=== PATIENT | female | born 1975 | race Caucasian/White ===

== ENCOUNTER 2017-03-27 16:52 | Emergency (ER) | payer OTHER ==
[~2017-03-27] VITALS: Ht 162.6 cm; Wt 73.6 kg
[2017-03-27 16:52] VITALS: BP 120/78; PULSE 81; RESP 18; O2SAT 98
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
[2017-03-27] MEDS ORDERED: HYDROcodone-APAP 5-325 mg Tablet PO ONE (17:05)
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
[2017-03-27] MEDS ORDERED: IBUP800T28 PO (18:01)
[2017-03-27] MEDS ORDERED: CYCL10TA9 PO (18:01)
[2017-03-27 18:13] VITALS: BP 120/78; PULSE 81; RESP 18; O2SAT 98
== END 2017-03-27 18:14 | disposition home or self-care (01) ==
LOC: SED 16:52
DX: S39.012A Strain of muscle, fascia and tendon of lower back, initial encounter (principal); M54.2 Cervicalgia; R07.1 Chest pain on breathing; V43.62XA Car passenger injured in collision with other type car in traffic accident, initial encounter; Y93.89 Activity, other specified; Y99.8 Other external cause status; Y92.410 Unspecified street and highway as the place of occurrence of the external cause; F17.200 Nicotine dependence, unspecified, uncomplicated; Z90.49 Acquired absence of other specified parts of digestive tract